=== PATIENT | male | born 1945 | race Caucasian/White ===

== ENCOUNTER 2017-01-02 20:52 | Emergency (ER) | payer MEDICARE, OTHER ==
[~2017-01-02] VITALS: Ht 180.3 cm; Wt 131.8 kg
[~2017-01-02 20:52] MED LIST: CIPR-231 PO; CLAR10T; HSC.125T PO; METO25TA6 PO; NPR500T PO; SIMV20TA4 PO
[2017-01-02 20:54] VITALS: BP 159/81; PULSE 82; RESP 16; O2SAT 96
--- NOTE | 2017-01-02 21:59 | ED.REPORT ---
HPI-Abd Pain M 40 and Over Date of Service Jan 02, 2017 ED Provider: Sondra Barragan MD Pt is a 71 year old male with a hx of presenting to the ED complaining of 9/10 left side and back pain onset at 1730 today. He also complains of nausea. Denies vomiting, fever, chills, or dysuria. He reports that this feels like his previous kidney stones. Pt was diagnosed with renal stones 6 months ago. Nursing Notes Stated Complaint: LEFT SIDE & BACK PAIN Chief Complaint: Male Abdominal Pain Nursing Notes Reviewed: Yes Allergies: Coded Allergies: Sulfa (Sulfonamide Antibiotics) (Verified Adverse Reaction, Severe, N/V, ) Scheduled Ciprofloxacin (Cipro) 500 Mg Tablet 500 MG PO BID Hyoscyamine Sulfate (Levsin) 0.125 Mg Tab 0.125 MG PO QID Metoprolol Tartrate (Metoprolol Tartrate) 25 Mg Tablet 12.5 MG PO BID Ondansetron ODT (Ondansetron ODT) 8 Mg Tab.rapdis 8 MG PO Q8H Simvastatin (Simvastatin) 20 Mg Tablet 20 MG PO HS Tamsulosin (Flomax) 0.4 Mg Capsule 0.4 MG PO DAILY Scheduled PRN Hydrocodone-Acetaminophen 5-325 mg (Hydrocodone-Acetaminophen 5-325 mg) 1 Each Tablet 1 TABLET PO Q4H PRN PRN For Pain Naproxen (Naproxen) 500 Mg Tab 500 MG PO BID PRN PRN For Pain Miscellaneous Medications Loratadine-Expunged Drug, Do Not Renew! (Loratadine-Expunged Drug, Do Not Renew! ) 10 Mg Tablet General Time Seen by MD: 21:51 Chief Complaint Flank pain left Hx Obtained From: Patient Arrived By: Walk-in Sudden in Onset?: No Onset Occurred: 5 - 8 hours ago Symptom Duration: Since onset Progression since Onset: Constant Location: : Flank left: LLQ Quality: Painful Severity: Current: Severe Severity: Maximum: Severe Recent Healthcare: No recent doctor visit, No recent hospitalization Similar Sx Previous: Yes Past Medical History Past Medical History Pt has hx of kidney stones, and was diagnosed with renal stones 6 months ago Past Surgical History denies Smoking History Never Smoker Ambulatory Status Independent Review of Systems Constitutional: Denies: Chills, Fever GI: Reports: Abdominal pain, Nausea, Denies: Vomiting Male: Reports Flank pain, Denies Dysuria Complete sys rev & neg: except as marked. Physical Exam Initial Vital Signs Vital Signs (First) Date Time Temp Pulse Resp B/P Pulse Ox O2 Delivery O2 Flow Rate FiO2 01/02/17 20:54 36.8 82 16 159/81 96 Room Air Initial VS: Reviewed, Vital signs abnormal Head / Eyes: Atraumatic, Normocephalic, PERRL ENT: Mucous membranes moist, Conjunctiva normal, No scleral icterus Neck: Supple, Non-tender, Full range of motion Skin: Warm, Dry, No cyanosis Neurologic: Alert, Oriented, Nonfocal Psychiatric: Mood/affect normal, Behavior normal, Normal thought content General/Constitutional: Awake, Alert, Well appearing Respiratory / Chest: Breath sounds NL, Breath sounds = bilat, No respiratory distress, No rales, No rhonchi, No wheezing Cardiovascular: Heart rate NL, Regular rhythm, Heart sounds NL, Peripheral circulation NL Abdomen: Atraumatic, Soft Tenderness/Guarding/Rebound: Positive: Tender LLQ... (Moderate) Back: Atraumatic, Inspection NL, Full range of motion Interpretation & Diagnostics Lab Results Interpretation Result Diagram: 01/02/17213901/02/17 214 Test 01/02/17 21:20 01/02/17 21:40 Urine Color Yellow (YELLOW) Urine Appearance Slightly cloudy Urine pH 5.0 (5.0-8.0) Urine Specific [place] 1.020 (1.003-1.035) Urine Protein Tracemg/dL (NEG,TRACE) Urine Glucose (UA) Negativemg/dL (NEGATIVE) Urine Ketones Negativemg/dL (NEGATIVE) Urine Occult Blood Large (NEGATIVE) Urine Nitrite Negative (NEGATIVE) Urine Bilirubin Negative (NEGATIVE) Urine Urobilinogen Normalmg/dL (NORMAL) Urine Leukocyte Esterase Negative (NEGATIVE) Urine RBC 11-50/hpf (0-2) Urine WBC 0-5/hpf (0-5) Urine Epithelial Cells Few/hpf (NONE-MOD) Urine Crystals Uric acid crystals (NONE Urine Bacteria Few/hpf (NONE-FEW) Urine Hyaline Casts None/lpf (NONE) Urine Granular Casts None seen (NONE SEEN) Urine Waxy Casts None seen (NONE SEEN) Urine Red Blood Cell Casts None seen (NONE SEEN) Urine White Blood Cell Casts None seen (NONE SEEN) Urine Mucus Present (None Seen) Urine Trichomonas None seen (NONE SEEN) Urine Yeast None (NONE SEEN) Urinalysis Comment None Urine Culture Reflexed Not indicated White Blood Count 12.8th/mm3 (3.8-10.1) Red Blood Count 5.38mil/mm3 (4.40-5.80) Hemoglobin 15.1g/dL (13.8-17.2) Hematocrit 43.7% (41.0-50.0) Mean Corpuscular Volume 81.2fL (81-100) Mean Corpuscular Hemoglobin 28.1pg (27.0-35.0) Mean Corpuscular Hemoglobin Concent 34.6% (32.0-37.0) Red Cell Distribution Width 13.4% (12.3-15.4) Platelet Count 212bil/L (150-400) Neutrophils (%) (Auto) 81.6% (40-74) Lymphocytes (%) (Auto) 12.6% (14-46) Monocytes (%) (Auto) 4.9% (4-12) Eosinophils (%) (Auto) 0.5% (0-5) Basophils (%) (Auto) 0.1% (0-3) Sodium Level 140mEq/L (134-144) Potassium Level 4.2mEq/L (3.5-5.2) Chloride Level 103mEq/L (97-108) Carbon Dioxide Level 22mmol/L (18-29) Blood Urea Nitrogen 21mg/dL (8-27) Creatinine 1.44mg/dL (0.76-1.27) Estimat Glomerular Filtration Rate 51mL/min (>59) Glucose Level 199mg/dL (60-99) Calcium Level 9.2mg/dL (8.5-10.1) Magnesium Level 2.0mg/dL (1.6-2.6) Total Bilirubin 0.4mg/dL (0.0-1.2) Aspartate Amino Transf (AST/SGOT) 20U/L (0-50) Alanine Aminotransferase (ALT/SGPT) 23U/L (0-44) Alkaline Phosphatase 114U/L (25-160) Total Protein 7.6g/dL (6.4-8.4) Albumin 4.1g/dL (3.4-5.0) Lipase 33U/L (13-60) Hold Hurley Top Tube Received (Received) CT Abd / Pelvis Interpretation CONCLUSION: Left nephrolithiasis with mild hydroureteronephrosis, and a 1 mm calculus within the distal ureter. This report was transmitted to the emergency room at 01/02/2017 - 10:30:46 PM PDT. Study type: Abdominal CT no contrast Interpretation / Wet Read by: Interpret - Radiologist Re-Eval/Medical Decision Med Decision/Clinical Course Patient presents with left flank pain that was already improving upon arrival here. CT confirms a 1 mm stone, there is no sign of infection. Time of Eval: 22:45 Patient Status: Condition improved Re-Evaluation/Progress Note: Pt pain level is currently at a 4/10. Discussed plan for discharge. Pt understands and agrees. Counseled Regarding: Diagnosis, Lab results, Need for follow-up, When/why to return to ED Discharge & Departure Primary Impression: Renal colic Disposition: Home Vital Signs - All Vital Signs Date Time Temp Pulse Resp B/P Pulse Ox O2 Delivery O2 Flow Rate FiO2 01/02/17 23:32 36.7 74 16 153/66 95 Room Air 01/02/17 20:54 36.8 82 16 159/81 96 Room Air )( All Prior VS Reviewed: Yes Condition: Improved Patient Instructions: Renal Colic (ED) Additional Instructions: You have a 1 mm kidney stone, which will pass on its own. To avoid kidney stones in the future, drink plenty of fluids. You need to have your kidney function checked and have a repeat chemistry from your primary care doctor. Return to the ER if you develop any new or worsening symptoms. Referrals: OTHER,PHYSICIAN (PCP) (Family) Scribe Attestation Portions of this note were transcribed by Yariel Bey. I, Dr. Barragan personally performed the history, physical exam and medical decision-making; I reviewed and confirmed the accuracy of the information in the transcribed note. Signed by : Maya Banda, 01/02/2017 and 2305. Sondra Barragan MD Jan 02, 2017 21:59 YARIEL BEY Jan 02, 2017 22:47
[2017-01-02 22:00] LABS: BASOPHILS % (AUTO) 0.1 % (0-3); EOSINOPHILS % (AUTO) 0.5 % (0-5); MONOCYTES % (AUTO) 4.9 % (4-12); Mean Corpuscular Hemoglobin 28.1 pg (27.0-35.0); Mean Corpuscular Volume 81.2 fL (81-100); NEUTROPHILS % (AUTO) 81.6 % (40-74); Platelet Count 212 bil/L (150-400)
[2017-01-02] MEDS ORDERED: Ondansetron 2 mg/mL 2 mL Inj IVPUSH PRN (22:00)
[2017-01-02] MEDS ORDERED: 0.9% Sodium Chloride 1,000 ML IV ONE (22:00)
[2017-01-02 22:06] LABS: APPEARANCE,URINE SLIGHTLY CLOUDY (CLEAR,HAZY); COLOR,URINE YELLOW (YELLOW); OCCULT BLOOD,URINE LARGE (NEGATIVE); UROBILINOGEN,URINE NORMAL (NORMAL)
[2017-01-02] MEDS: HYDROmorphone 0.5 mg/0.5 mL iSecure Syringe IVPUSH PRN ×2 (22:13→22:57)
[2017-01-02] MEDS ORDERED: ONDA8TAB10 PO (23:03)
[2017-01-02] MEDS ORDERED: TAMS0.4C98 PO (23:04)
[2017-01-02] MEDS ORDERED: HYDR-4003 PO (23:04)
[2017-01-02 23:32] VITALS: BP 153/66; PULSE 74; RESP 16; O2SAT 95
--- NOTE | 2017-01-03 07:47 | DRSVH ---
PROCEDURE: CT KUB ([id number]) INDICATIONS: left flank pain TECHNIQUE: Noncontrast 5 mm thick sections acquired from the diaphragms to the symphysis. 5 mm thick coronal an d sagittal reformats were then performed. For radiation dose reduction, the following was used: aut omated exposure control, adjustment of mA and/or kV according to patient size. COMPARISON: None. FINDINGS: Image quality: Excellent. Lung bases: Lung bases are clear. Heart size is normal. Urinary system: Both kidneys are normal in size. There is a 1 mm stone in the distal left ureter cau sing mild left-sided hydronephrosis. There is a 1 mm nonobstructing stone in the midpole of the left kidney. There is a 9 mm in diameter stone in the superior pole of left kidney which has density measu rements of 450 Hounsfield units no urinary bladder stones are identified. There is diffuse urinary bl adder wall thickening. Other solid organs: Liver and spleen are normal in size. Gallbladder is within normal limits. Panc reas is normal in contours. No adrenal nodules. Peritoneum and bowel: Unenhanced bowel loops demonstrate normal wall thickness and caliber. No free fluid or air. Nodes and vessels: No retroperitoneal or mesenteric adenopathy by size criteria. Aorta and inferior vena cava are normal in caliber. Scattered atherosclerotic calcifications involving the abdominal an d pelvic Vasculature. Abdominal wall: Small fat-containing umbilical hernia is noted. Pelvis: No free pelvic fluid. No inguinal hernias or adenopathy. Bones: No suspicious bony lesions. No vertebral body compression fractures. Spine degenerative disc disease and facet arthropathy. IMPRESSION: 1. 1 mm distal left ureteral stone causing mild left-sided hydronephrosis. 2. Nonobstructing left renal stones. 3. Diffuse urinary bladder wall thickening which could be inflammatory/infectious versus neoplastic. Please correlate with urinalysis data. Dictated by: Malgorzata Perez MD, PhD on 01/03/2017 at 7:41 Approved by: Malgorzata Perez MD, PhD on 01/03/2017 at 7:46
== END 2017-01-02 23:33 | disposition home or self-care (01) ==
LOC: SED 20:52
DX: N23 Unspecified renal colic (principal); Z79.899 Other long term (current) drug therapy; Z88.2 Allergy status to sulfonamides
CPT/HCPCS: 36415; 74176; 80053; 81000; 83690; 83735; 85025; 96361; 96374; 96375; 96376; 99285; J1170; J2405; J7030